=== PATIENT | male | born 1985 | race Caucasian/White ===

== ENCOUNTER 2019-02-06 19:10 | Emergency (ER) | payer SELFPAY ==
[2019-02-06 19:59] VITALS: BP 116/68; PULSE 105; TEMP 98.3; BMI 30.1
[2019-02-06] MEDS ORDERED: NALOXONE HCL 0.4 MG/ML VIAL IVPUSH ONE (20:23)
[2019-02-06] MEDS ORDERED: NALOXONE HCL 0.4 MG/ML VIAL ONE (20:29)
--- NOTE | 2019-02-06 20:31 | PDOC ---
Documentation entered by Lashawn Anton SCRIBE, acting as scribe for Claudia Hernandez MD. Claudia Hernandez MD: This documentation has been prepared by the Desean rodriguez Adrianna, SCRIBE, under my direction and personally reviewed by me in its entirety. I confirm that the documentation accurately reflects all work, treatment, procedures, and medical decision making performed by me. Attending Attestation - Resident Resident Name: DwightJarrod - ED Attending Attestation I have performed the following: I have examined & evaluated the patient, The case was reviewed & discussed with the resident, I agree w/resident's findings & plan - HPI HPI: 02/06/19 20:25 33 Y M with heroin abuse, presenting with heroin overdose. Patient snorted and overdosed on heroin prior to arrival. He was given Narcan approximately one hour ago at approx 645pm today. no cp or sob, but somnolent Allergies: None Past Medical History: none Social history: Lives with family. Current smoker. Heroin use. - Physicial Exam PE: 02/06/19 20:23 Agree with the resident's HPI and PE as documented in the electronic medical record. somnolent, arousable, oriented appropriately, small pupils sluggish, on NRB, EOMI, nl conjunctiva, anicteric; neck supple. left lower basilar crackles/ rhonchi, RRR, abdomen soft nontender. BOOTH x4, no focal neuro deficits. No peripheral edema. normal color for ethnicity, WWP. - Medical Decision Making 02/06/19 20:26 History of physical examination as documented. Vital signs reviewed, notable for borderline hypoxia 90%, placed on supplemental O2 as well as mild tachycardia likely secondary to post heroin overdose. He had received Narcan via EMS at 6:45 PM tonight with immediate reversal. Physical examination is notable for a gross lung sounds rhonchorous, likely aspiration after heroin OD. continue with monitoring placed on NRB, got mildly hypoxic, already 1.5 hour post narcan, requires another dose of narcan now and continue on continuous pulse ox monitoring. at 1030pm, pt more alert, awake and alert, ambulatory, repeat VS on RA with Spo2 92%, mild tachy at 120-130s. this is likely s/p narcan as he is agitated. he is ambulatory around department, comfortable. he is requesting to make phone calls and asking for water. Discussion at the bedside with patient. Pt has capacity to make medical decisions. Discussed indications for treatment and admission, management plan, risks and benefits. There is no evidence of psychosis, SI/HI, hallucinations, altered mental status or intoxication. His gait is stable, clear speech and in No acute distress. Pt understands the nature of condition and treatment plan, including potential risks but not limited to: cardiac arrest, severe infection , infection, arrhythmia, stroke, respiratory failure, hypoxia, recurrence of heroin effect/respiratory depression, delay in diagnosis and management, loss of current lifestyle, loss of functional status, multiorgan failure, coma, severe disability and . Pt will be treated with close follow up with primary care doctor with reevaluation. he declined detox at this time, offered and provided referrals in paperwork. Return precautions advised, call 911 immediately if severe life threatening symptoms or concerns.. Pt has verbalized understanding of information provided, questions answered. AMA paperwork signed with RN and resident Dr Quintanilla. I was present throughout discussion as documented above. 02/06/19 22:32 02/06/19 23:03
--- NOTE | 2019-02-06 21:29 | PDOC ---
History of Present Illness - General History Source: Patient, Family Exam Limitations: No Limitations - History of Present Illness Initial Comments: 02/06/19 21:30 33M with no PMH who presents after snorting heroine. Pt was witnessed by brother to have blue lips and begin to have his face turn blue. Pt denies any symptoms and denies using any other drugs. Denies IVDA. Denies fever, chills, CP , SOB. <Jarrod Quintanilla - Last Filed: 02/06/19 22:42> <Claudia Hernandez - Last Filed: 02/07/19 01:19> - General Chief Complaint: Overdose Stated Complaint: OVERDOSE Time Seen by Provider: 02/06/19 19:42 Past History - Suicide/Smoking/Psychosocial Hx Smoking Status: Yes Smoking History: Unknown if ever smoked Have you smoked in the past 12 months: No Number of Cigarettes Smoked Daily: 20 Information on smoking cessation initiated: No Hx Alcohol Use: No Drug/Substance Use Hx: No <Jarrod Quintanilla - Last Filed: 02/06/19 22:42> <Claudia Hernandez - Last Filed: 02/07/19 01:19> - Past Medical History Allergies/Adverse Reactions: Allergies Allergy/AdvReac Type Severity Reaction Status Date / Time No Known Allergies Allergy Verified 07/21/13 12:29 Home Medications: Ambulatory Orders [place] Carbonate 800 mg PO 07/21/13 Review of Systems - Review of Systems Able to Perform ROS?: No (lethargic) Is the patient limited Cambodian proficient: No <Jarrod Quintanilla - Last Filed: 02/06/19 22:42> *Physical Exam - Vital Signs Last Vital Signs Temp Pulse Resp BP Pulse Ox 98.3 F 105 H 14 116/68 90 L 02/06/19 19:55 02/06/19 19:55 02/06/19 19:55 02/06/19 19:55 02/06/19 19:55 - Physical Exam Comments: 02/06/19 21:31 GENERAL: Well developed, well nourished. Awake and alert. No acute distress. HEENT: Normocephalic, atraumatic. Hearing grossly normal. Moist mucous membranes. 1-2mm pupils, reactive. PERRLA, EOMI. No conjunctival pallor. Sclera are non-icteric. NECK: Supple. Full ROM. No JVD. CARDIOVASCULAR: Regular rate and rhythm. No murmurs, rubs, or gallops. PULMONARY: No evidence of respiratory distress. Crackles in b/l lower lobes. ABDOMINAL: Soft. Non-tender. Non-distended. No rebound or guarding. MUSCULOSKELETAL: Normal range of motion at all joints. No bony deformities or tenderness. EXTREMITIES: No cyanosis. No clubbing. No edema. No calf tenderness or swelling. SKIN: Warm and dry. Normal capillary refill. No rashes. No jaundice. NEUROLOGICAL: Alert, awake, appropriate. Cranial nerves 2-12 grossly intact. Normal speech. Gait is normal without ataxia. PSYCHIATRIC: Cooperative. Good eye contact. Appropriate mood and affect. <Jarrod Quintanilla - Last Filed: 02/06/19 22:42> - Vital Signs Last Vital Signs Temp Pulse Resp BP Pulse Ox 98.3 F 105 H 14 116/68 90 L 02/06/19 19:55 02/06/19 19:55 02/06/19 19:55 02/06/19 19:55 02/06/19 19:55 <Claudia Hernandez - Last Filed: 02/07/19 01:19> ED Treatment Course - RADIOLOGY Radiology Studies Ordered: Category Date Time Status CHEST X-RAY PORTABLE* [RAD] Stat Radiology 02/06/19 19:56 Taken - Medications Given in the ED: ED Medications Discontinued Medications Generic Name Dose Route Start Last Admin Trade Name Freq PRN Reason Stop Dose Admin Naloxone HCl 0.2 mg 02/06/19 20:23 02/06/19 20:33 Narcan - IVPUSH 02/06/19 20:24 0.2 mg ONCE ONE Administration <Jarrod Quintanilla - Last Filed: 02/06/19 22:42> - Medications Given in the ED: ED Medications Discontinued Medications Generic Name Dose Route Start Last Admin Trade Name Freq PRN Reason Stop Dose Admin Naloxone HCl 0.2 mg 02/06/19 20:23 02/06/19 20:33 Narcan - IVPUSH 02/06/19 20:24 0.2 mg ONCE ONE Administration <Claudia Hernandez - Last Filed: 02/07/19 01:19> Medical Decision Making - Medical Decision Making 02/06/19 21:32 33M who presents after overdosing on heroine. Pt given narcan of unknown amount by EMS. Pt may have aspirated based on PE. Pt requiring nonrebreather to remain normoxic. RR around 10. Pt refusing narcan but arousable to verbal stimuli. 02/06/19 22:36 Pt given 0.2mg narcan. Pt noted to be ambulating but hypoxic to low 90's with HR in the 120's. Pt is alert and oriented and ambulating without HI or SI. I have discussed at length reasons why he should stay and be observed but he is adamant about leaving AMA. AMA paperwork filled out and signed. Will give information on detox although pt initially refused detox. <Jarrod Quintanilla - Last Filed: 02/06/19 22:42> *DC/Admit/Observation/Transfer - Discharge Dispostion Decision to Admit order: No <Jarrod Quintanilla - Last Filed: 02/06/19 22:42> <Claudia Hernandez - Last Filed: 02/07/19 01:19> Diagnosis at time of Disposition: Overdose Qualifiers: Encounter type: initial encounter Injury intent: undetermined intent Qualified Code(s): T50.904A - Poisoning by unspecified drugs, medicaments and biological substances, undetermined, initial encounter - Discharge Dispostion Disposition: AGAINST MEDICAL ADVICE Condition at time of disposition: Guarded - Referrals Referrals: [facility] [place] [facility] [place] [Provider Group] [facility] [Provider [facility]] - Patient Instructions Printed Discharge Instructions: DI for Drug Overdose in Adults Additional Instructions: You understand you overdose from heroine today you had low oxygenation saturation and slow breathing and very sleepy despite the Narcan administration. You have a risk of recurrence and continued somnolence. 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
--- NOTE | 2019-02-06 22:41 | PN ---
Progress Note (short form) - Note Progress Note: Admission request sent to [facility] but prior to assessment patient decided to leave AMA from the ER Should he return and require inpatient care we will be happy to follow him Visit type - Emergency Visit Emergency Visit: Yes Care time: The patient presented to the Emergency Department on the above date and was hospitalized for further evaluation of their emergent condition. - New Patient This patient is new to me today: Yes Date on this admission: 02/06/19 - Critical Care Critical Care patient: Yes Total Critical Care Time (in minutes): 0
--- NOTE | 2019-02-08 08:55 | EKG ---
Test Reason : Blood Pressure : / mmHG Vent. Rate : 093 BPM Atrial Rate : 093 BPM P-R Int : 168 ms QRS Dur : 098 ms QT Int : 358 ms P-R-T Axes : 055 052 022 degrees QTc Int : 445 ms NORMAL SINUS RHYTHM POSSIBLE LEFT ATRIAL ENLARGEMENT BORDERLINE ECG WHEN COMPARED WITH ECG OF 21-JUL-2013 13:39, NO SIGNIFICANT CHANGE WAS FOUND Confirmed by LANDON LEBLANC, CORDELIA ([id number]) on 02/08/2019 8:55:06 AM Referred By: Confirmed By:CORDELIA NAVARRETE MD
== END 2019-02-06 22:54 | disposition left against medical advice (07) ==
LOC: JER 19:10
PROC: 3E033GC Introduction of Other Therapeutic Substance into Peripheral Vein, Percutaneous Approach (ICD-10-PCS; principal; 2019-02-06)
DX: T40.1X1A Poisoning by heroin, accidental (unintentional), initial encounter (principal); Y92.038 Other place in apartment as the place of occurrence of the external cause
CPT/HCPCS: 71045-TC-FY; 93005; 93010; 99281-25